=== PATIENT | male | born 1980 | race Caucasian/White ===

== ENCOUNTER 2017-04-25 11:32 | Emergency (ER) | payer SELFPAY ==
[~2017-04-25] VITALS: Ht 170.2 cm; Wt 88.0 kg
[~2017-04-25 11:32] MED LIST: BACT800T5 PO; BENZ100 PO; LORTA5 PO; METH750T2 PO; MOBI15TA PO; TAMS0.4C67 PO; TRAM50 PO; ZOFR4TAB3 SL
[2017-04-25 11:34] VITALS: BP 121/81; PULSE 78; RESP 16; TEMP 98; O2SAT 97
--- NOTE | 2017-04-25 11:40 | PD ---
HPI . cerumen impaction Chief Complaint: ENT Complaint Time Seen by Provider: 11:40 Travel History International Travel<30 days: No Contact w/Intl Traveler<30days: No Traveled to known affect area: No History of Present Illness HPI 36-year-old male here with complaints of bilateral cerumen impaction. Patient tells me his been using his finger to try to remove earwax, but thinks he is just impacted it further in. He reports having a PCP, but has not seen him for quite some time. He has no other issues. Just reports ear wax build up. PFSH Past Medical History Kidney Stones: Yes Social History Alcohol Use: Yes Tobacco Use: No Substance Use: No Allergies-Medications (Allergen,Severity, Reaction): Coded Allergies: No Known Allergies (Unverified , 04/25/17) Reported Meds & Prescriptions Reported Meds & Active Scripts Active Debrox Otic Drops (Carbamide Peroxide Otic Drops) 6.5% Soln 5-10 Drop EACH EAR BID PRN 5 Days up to 4 days. Review of Systems General / Constitutional: No: Fever Eyes: No: Visual changes HENT: Positive: Other (cerumen impaction ), No: Headaches Cardiovascular: No: Chest Pain or Discomfort Respiratory: No: Shortness of Breath Gastrointestinal: No: Abdominal Pain Genitourinary: No: Dysuria Musculoskeletal: No: Pain Skin: No Rash Neurologic: No: Weakness Psychiatric: No: Depression Endocrine: No: Polydipsia Hematologic/Lymphatic: No: Easy Bruising Physical Exam Narrative GENERAL: AAO x 3, no acute distress, Well-nourished, well-developed patient. SKIN: Warm and dry. No visible rashes or bruising. HEAD: Normocephalic and atraumatic. EYES: No scleral icterus. No injection or drainage. EOM intact, PERRLA ENT: No nasal drainage noted. Mucous membranes pink. Airway patent. Bilateral cerumen impaction that is very impacted and hard. NECK: Supple, trachea midline. No JVD. CARDIOVASCULAR: Regular rate and rhythm without murmurs, gallops, or rubs. RESPIRATORY: Breath sounds equal bilaterally. No accessory muscle use. No rhonchi or rales. GASTROINTESTINAL: Visual inspection normal EXTREMITIES: No cyanosis or edema. BACK: Nontender without obvious deformity. No CVA tenderness. NEURO: Grossly intact PSYCH: AAO x 3, normal affect. Data Data Last Documented VS Vital Signs Date Time Temp Pulse Resp B/P Pulse Ox O2 Delivery O2 Flow Rate FiO2 04/25/17 11:34 98.0 78 16 121/81 97 MDM Medical Decision Making Medical Screen Exam Complete: Yes Emergency Medical Condition: Yes Medical Record Reviewed: Yes Differential Diagnosis cerumen impaction, less likely OE, less likely OM Narrative Course 36-year-old male here with bilateral cerumen impaction. This wax is very hard and appears to have been here for a very long time. Ear curette used and only a slight amount of wax removed. I recommend use of the proximal to soften up this wax and return in about 3-5 days for removal. Patient verbalized understanding of instructions, questions were answered, and thanked me for their care. I advised them if their condition worsens, please return to the nearest emergency room for further care. Procedures Procedure Narrative cerumen removal curette used to remove wax from right ear, very impacted only small amount removed Diagnosis Primary Impression: Impacted cerumen of both ears Patient Instructions: General Instructions Additional Instructions: Try to use these eardrops for the next 3-5 days. After that you can return to have your ears flushed, go to urgent care or your primary care doctor's office. Med/Other Pt SpecificInfo: Prescription(s) given Scripts Carbamide Peroxide Otic Drops (Debrox Otic Drops)6.5% Soln5-10 Drop EACH EAR BID PRN (Ear Wax Removal) 5 Days Ref 0 up to 4 days. Prov:Jeff Miller MD 04/25/17 Disposition: 01 DISCHARGE HOME Condition: Stable Jessie Fenton Apr 25, 2017 11:40
[2017-04-25] MEDS ORDERED: CARB6.5S5 EACH EAR (11:46)
== END 2017-04-25 11:59 | disposition home or self-care (01) ==
LOC: PHEFT 11:32
DX: H61.23 Impacted cerumen, bilateral (principal); Z87.442 Personal history of urinary calculi
CPT/HCPCS: 69210

== ENCOUNTER 2017-05-02 13:42 | Emergency (ER) | payer SELFPAY ==
[~2017-05-02] VITALS: Ht 170.2 cm; Wt 88.0 kg
[~2017-05-02 13:42] MED LIST changes: -BACT800T5 PO; -BENZ100 PO; +CARB6.5S5 EACH EAR; -LORTA5 PO; -METH750T2 PO; -MOBI15TA PO; -TAMS0.4C67 PO; -TRAM50 PO; -ZOFR4TAB3 SL
[2017-05-02 13:49] VITALS: BP 117/84; PULSE 78; RESP 20; TEMP 98.3; O2SAT 95
--- NOTE | 2017-05-02 14:28 | PD ---
HPI Chief Complaint: ENT Complaint Time Seen by Provider: 14:27 Travel History International Travel<30 days: No Contact w/Intl Traveler<30days: No Traveled to known affect area: No History of Present Illness HPI 36-year-old male that presents to the ED for evaluation of cerumen impaction. Patient has a history of cerumen impaction. Patient was seen here about a week ago for evaluation of same. Patient was told to try Debrox and his been doing this in the right ear with some results. Per patient he feels like there is still something in the accident comes here to get rechecked. states having some discomfort in area and inability to hear from that area. He also states some on the left not as bad. He has not applied any drugs on the left. Pain is minimal 4 out of 10. PFSH Past Medical History Kidney Stones: Yes Social History Alcohol Use: Yes (SOCIAL) Tobacco Use: No Substance Use: No Allergies-Medications (Allergen,Severity, Reaction): Coded Allergies: No Known Allergies (Unverified , 05/02/17) Reported Meds & Prescriptions Reported Meds & Active Scripts Active Debrox Otic Drops (Carbamide Peroxide Otic Drops) 6.5% Soln 5-10 Drop EACH EAR BID PRN 5 Days up to 4 days. Review of Systems Except as stated in HPI: all other systems reviewed are Neg Physical Exam Narrative GENERAL: SKIN: Warm and dry. HEAD: Atraumatic. Normocephalic. EYES: Pupils equal and round. No scleral icterus. No injection or drainage. ENT: No nasal bleeding or discharge. Mucous membranes pink and moist. Cannot visualize the TMs bilaterally secondary to cerumen impaction. Ear canal appears to be intact. No signs of infection noted. NECK: Trachea midline. No JVD. CARDIOVASCULAR: Regular rate and rhythm. RESPIRATORY: No accessory muscle use. Clear to auscultation. Breath sounds equal bilaterally. GASTROINTESTINAL: Abdomen soft, non-tender, nondistended. Hepatic and splenic margins not palpable. MUSCULOSKELETAL: Extremities without clubbing, cyanosis, or edema. No obvious deformities. NEUROLOGICAL: Awake and alert. No obvious cranial nerve deficits. Motor grossly within normal limits. Five out of 5 muscle strength in the arms and legs. Normal speech. PSYCHIATRIC: Appropriate mood and affect; insight and judgment normal. Data Data Last Documented VS Vital Signs Date Time Temp Pulse Resp B/P Pulse Ox O2 Delivery O2 Flow Rate FiO2 05/02/17 13:49 98.3 78 20 117/84 95 Orders Ear Irrigation (05/02/17 14:18) MDM Medical Decision Making Medical Screen Exam Complete: Yes Emergency Medical Condition: Yes Medical Record Reviewed: Yes Differential Diagnosis Cerumen impaction versus otitis media versus otitis externa Narrative Course 36-year-old male that presents to the ED for evaluation of cerumen impaction. Patient was properly examined and was found to have signs and symptoms consistent bilateral cerumen impaction. Right worse than left. Patient has been applying drops to the right than on the left as the left is not bothering him. Patient comes here to get evaluated. Recommend irrigation. Patient agrees with this. Ear irrigation was performed by dental technician apprentice. Most of the earwax was removed. In regards to the left when I do recommend patient applies drops. Close follow with PCP. See ED for worsening symptoms. Diagnosis Primary Impression: Impacted cerumen of both ears Patient Instructions: General Instructions Additional Instructions: Continue using drops in the left ear. See ED worsening symptoms. Follow with PCP. Med/Other Pt SpecificInfo: No Meds Exist/No RX given Disposition: 01 DISCHARGE HOME Condition: Stable Dario Rome May 02, 2017 14:28
== END 2017-05-02 14:43 | disposition home or self-care (01) ==
LOC: PHEFT 13:42
DX: H61.23 Impacted cerumen, bilateral (principal); Z87.442 Personal history of urinary calculi
CPT/HCPCS: 99283